=== PATIENT | male | born 1965 | race Caucasian/White ===

== ENCOUNTER 2018-01-11 10:25 | Emergency (ER) | payer OTHER ==
[~2018-01-11] VITALS: Ht 180.3 cm; Wt 133.8 kg
[~2018-01-11 10:25] MED LIST: ADULT LOW DOSE81 MG PO; ALLOPURINOL 30300 M2 PO; ALLOPURINOL PO; AMARYL2 MG PO; ASPIRIN EC81 M1; ATENOLOL 100MG100 M2 PO; AUGMENTIN 875875 MG PO; CIPRO500 MG PO; ENOXAPARIN40 MG/0.1; FLAGYL500 MG PO; GEMFIBROZIL 60600 MG PO; GLUCOPHAGE1000 MG PO; HYDROCODON-ACE1 EA12; HYDROCODONE-AP1 EAC6 PO; LEVAQUIN 750 M750 MG PO; LISINOPRIL40 MG PO; MEDROL4 MG PO; METFORMIN HCL500 MG PO; NORCO 5-325 TA1 EAC1 PO; ONDANSETRON HCL4 M2 PO; PREDNISONE 10 M10 M1 PO; PREDNISONE 10 M10 MG PO; VITAMIN C PO; VITAMINC500 PO; ZOFRAN4 MG
[2018-01-11 11:08] LABS: ABSOLUTE BASOPHILS 0.1 thou/uL (0.0-0.2); ABSOLUTE EOSINOPHILS 0.2 thou/uL (0.0-0.7); ABSOLUTE LYMPHOCYTES 1.4 thou/uL (0.8-5.3); ABSOLUTE MONOCYTES 0.3 thou/uL (0.0-1.2); ABSOLUTE NEUTROPHILS 5.8 thou/uL (1.6-8.1); HEMATOCRIT 36.7 % (42.0-52.0); HEMOGLOBIN 12.2 gm/dL (14.0-18.0); LYMPHOCYTES 17.3 %; MCH 30.6 pg (26.0-34.0); MCHC 33.2 g/dL (28.0-37.0); MONOCYTES 4.4 %; MPV 7.5 fl. (7.2-11.1); NUCLEATED RBCS 0 /100WBC; PLATELET COUNT* 252 thou/uL (150-400); POLYS 74.3 %; RBC 3.99 mil/uL (4.50-6.00); RDW-CV 14.9 % (10.5-14.5); WBC 7.8 thou/uL (4.0-11.0)
[2018-01-11 11:16] LABS: ANION GAP 9 mmol/L (7-16); BUN 15 mg/dL (7-18); CALCIUM 9.3 mg/dL (8.5-10.1); CHLORIDE 100 mmol/L (98-107); CO2 25 mmol/L (21-32); CREATININE 0.9 mg/dL (0.6-1.3); GLUCOSE 193 mg/dL (70-99); POTASSIUM 3.9 mmol/L (3.5-5.1); SODIUM 134 mmol/L (136-145)
[2018-01-11 11:32] LABS: ALBUMIN 3.5 g/dL (3.4-5.0); ALKALINE PHOSPHATASE 63 U/L (46-116); AMYLASE 68 U/L (25-115); CK-MB MASS 0.6 ng/mL (<0.5-3.6); LIPASE 306 U/L (73-393); SGOT 20 U/L (15-37); SGPT 19 U/L (30-65); TOTAL BILIRUBIN 0.5 mg/dL (<0.1-1.0); TOTAL PROTEIN 8.3 g/dL (6.4-8.2); TROPONIN-I LEVEL <0.06 ng/mL (<0.06)
[2018-01-11 13:10] LABS: URINE BILIRUBIN NEGATIVE (Negative); URINE BLOOD NEGATIVE (Negative); URINE CLARITY CLEAR; URINE COLOR YELLOW; URINE GLUCOSE-RANDOM NEGATIVE (Negative); URINE KETONES NEGATIVE (Negative); URINE LEUKOCYTES-REFLEX NEGATIVE (Negative); URINE NITRITE-REFLEX NEGATIVE (Negative); URINE PROTEIN NEGATIVE (Negative); URINE UROBILINOGEN 0.2 E.U./dl (0.2-1.0)
[2018-01-11] MEDS ORDERED: ONDANSETRON HCL4 M2 PO (13:22)
[2018-01-11 13:48] VITALS: BP 101/64
--- NOTE | 2018-01-11 19:36 | EKG ---
[place] [address] ELECTROCARDIOGRAM REPORT Name: WILLIE VALENCIA Room: [facility]#: [id number] Admission: 01/11/18 Attend Phys: Discharge: 01/11/18 Date of : 69 Report #: [id number] THIS REPORT FOR: //name// [facility] ED Test Date: 2018-01-11 Test Time: 10:42:30 Pat Name: WILLIE VALENCIA Department: Room: Gender: M Evaluation Specialist: JETT : 1965 Requested By: Zully Dc Order Number: [id number] MD: Bharat Hemphill Measurements Intervals [place] Rate: 70 P: 65 AR: 174 QRS: 35 QRSD: 94 T: 48 QT: 385 QTc: 416 Interpretive Statements Sinus rhythm Low voltage, precordial leads Baseline wander in lead(s) V1,V4,V6 Compared to ECG 11/10/2012 08:19:35 Low QRS voltage now present Electronically Signed On 01-11-2018 19:36:13 CDT by Bharat Hemphill [email or web address] <ELECTRONICALLY SIGNED> By: Bharat Hemphill MD, FAC 01/11/18 1936 1042 1042 Bharat Hemphill MD, MERGED WITH [facility] /EPI
== END 2018-01-11 13:49 | disposition home or self-care (01) ==
LOC: M.ERS 10:25
PROVIDERS: Nurse Practitioner Family
DX: T18.198A Other foreign object in esophagus causing other injury, initial encounter (principal); R11.2 Nausea with vomiting, unspecified; E11.9 Type 2 diabetes mellitus without complications; I10 Essential (primary) hypertension; K21.9 Gastro-esophageal reflux disease without esophagitis; E78.00 Pure hypercholesterolemia, unspecified; M10.9 Gout, unspecified; Z91.041 Radiographic dye allergy status; Z88.6 Allergy status to analgesic agent; Z88.8 Allergy status to other drugs, medicaments and biological substances; X58.XXXA Exposure to other specified factors, initial encounter; Y93.89 Activity, other specified; Y92.89 Other specified places as the place of occurrence of the external cause; Y99.8 Other external cause status

== ENCOUNTER 2018-03-01 21:00 | Emergency (ER) | payer OTHER ==
[~2018-03-01] VITALS: Ht 180.3 cm; Wt 136.1 kg
[2018-03-01 21:52] LABS: ABSOLUTE BASOPHILS 0.1 thou/uL (0.0-0.2); ABSOLUTE EOSINOPHILS 0.2 thou/uL (0.0-0.7); ABSOLUTE LYMPHOCYTES 1.6 thou/uL (0.8-5.3); ABSOLUTE MONOCYTES 0.4 thou/uL (0.0-1.2); ABSOLUTE NEUTROPHILS 8.6 thou/uL (1.6-8.1); BASOPHILS 0.8 %; EOSINOPHILS 2.1 %; HEMATOCRIT 37.6 % (42.0-52.0); HEMOGLOBIN 12.6 gm/dL (14.0-18.0); LYMPHOCYTES 14.8 %; MCH 30.8 pg (26.0-34.0); MCHC 33.5 g/dL (28.0-37.0); MPV 7.7 fl. (7.2-11.1); NUCLEATED RBCS 0 /100WBC; PLATELET COUNT* 318 thou/uL (150-400); POLYS 78.3 %; RBC 4.09 mil/uL (4.50-6.00); RDW-CV 15.3 % (10.5-14.5)
[2018-03-01 21:56] LABS: CALCIUM 9.4 mg/dL (8.5-10.1)
[2018-03-01 22:00] LABS: ALBUMIN 3.6 g/dL (3.4-5.0); TOTAL BILIRUBIN 0.4 mg/dL (<0.1-1.0); TOTAL PROTEIN 8.8 g/dL (6.4-8.2)
[2018-03-01] MEDS ORDERED: FLAGYL500 MG PO (22:45)
[2018-03-01] MEDS ORDERED: CIPROFLOXACIN500 M1 PO (22:45)
[2018-03-01] MEDS ORDERED: BENTYL 20 MG TA20 M1 PO (22:45)
[2018-03-01 23:03] VITALS: BP 108/61
== END 2018-03-01 23:03 | disposition home or self-care (01) ==
LOC: M.ERS 21:00
PROVIDERS: Nurse Practitioner Family
DX: K57.92 Diverticulitis of intestine, part unspecified, without perforation or abscess without bleeding (principal); E11.9 Type 2 diabetes mellitus without complications; I10 Essential (primary) hypertension; K21.9 Gastro-esophageal reflux disease without esophagitis; E78.00 Pure hypercholesterolemia, unspecified; M10.9 Gout, unspecified

== ENCOUNTER 2018-11-10 22:29 | Emergency (ER) | payer OTHER ==
[~2018-11-10] VITALS: Ht 180.3 cm; Wt 133.8 kg
[~2018-11-10 22:29] MED LIST changes: +BENTYL 20 MG TA20 M1 PO; +CIPROFLOXACIN500 M1 PO
[2018-11-10] MEDS ORDERED: GEMFIBROZIL 60600 MG PO (22:46)
[2018-11-10 23:06] LABS: ABSOLUTE BASOPHILS 0.1 thou/uL (0.0-0.2); ABSOLUTE EOSINOPHILS 0.2 thou/uL (0.0-0.7); ABSOLUTE LYMPHOCYTES 1.9 thou/uL (0.8-5.3); ABSOLUTE MONOCYTES 0.5 thou/uL (0.0-1.2); ABSOLUTE NEUTROPHILS 9.6 thou/uL (1.6-8.1); BASOPHILS 1.1 %; EOSINOPHILS 1.9 %; HEMATOCRIT 38.6 % (42.0-52.0); LYMPHOCYTES 15.6 %; MCH 30.5 pg (26.0-34.0); MCHC 33.8 g/dL (28.0-37.0); MCV 90.2 fL (80.0-100.0); MONOCYTES 4.4 %; MPV 7.9 fl. (7.2-11.1); NUCLEATED RBCS 0 /100WBC; PLATELET COUNT* 305 thou/uL (150-400); RBC 4.27 mil/uL (4.50-6.00); RDW-CV 14.2 % (10.5-14.5); WBC 12.4 thou/uL (4.0-11.0)
[2018-11-10 23:12] LABS: CREATININE 0.9 mg/dL (0.6-1.3); POTASSIUM 4.3 mmol/L (3.5-5.1)
[2018-11-10 23:17] LABS: ALBUMIN 3.8 g/dL (3.4-5.0); TOTAL BILIRUBIN 0.5 mg/dL (<0.1-1.0)
[2018-11-11] MEDS ORDERED: CIPRO500 MG PO (00:35)
[2018-11-11] MEDS ORDERED: FLAGYL500 M1 PO (00:35)
[2018-11-11 00:43] VITALS: BP 97/63
== END 2018-11-11 00:43 | disposition home or self-care (01) ==
LOC: M.ERS 22:29
PROVIDERS: Nurse Practitioner Family
DX: K57.92 Diverticulitis of intestine, part unspecified, without perforation or abscess without bleeding (principal); E11.9 Type 2 diabetes mellitus without complications; I10 Essential (primary) hypertension; K21.9 Gastro-esophageal reflux disease without esophagitis; E78.00 Pure hypercholesterolemia, unspecified; M10.9 Gout, unspecified; Z88.1 Allergy status to other antibiotic agents; Z88.8 Allergy status to other drugs, medicaments and biological substances

== ENCOUNTER 2021-02-18 23:00 | Inpatient (IN) | payer OTHER ==
[~2021-02-18] VITALS: Ht 177.8 cm; Wt 145.1 kg
[~2021-02-18 23:00] MED LIST changes: +ALLOPURINOL 30300 M1 PO; -ALLOPURINOL 30300 M2 PO; +FLAGYL500 M1 PO
[2021-02-18 23:35] VITALS: BP 111/61
[2021-02-19 01:59] LABS: ABSOLUTE BASOPHILS 0.1 thou/uL (0.0-0.2); ABSOLUTE EOSINOPHILS 0.1 thou/uL (0.0-0.7); ABSOLUTE LYMPHOCYTES 1.1 thou/uL (0.8-5.3); ABSOLUTE MONOCYTES 0.5 thou/uL (0.0-1.2); ABSOLUTE NEUTROPHILS 10.8 thou/uL (1.6-8.1); BASOPHILS 0.8 %; HEMATOCRIT 42.1 % (42.0-52.0); HEMOGLOBIN 13.7 gm/dL (14.0-18.0); MCH 30.6 pg (26.0-34.0); MCHC 32.4 g/dL (28.0-37.0); MCV 94.3 fL (80.0-100.0); MONOCYTES 4.2 %; MPV 7.9 fl. (7.2-11.1); NUCLEATED RBCS 0 /100WBC; PLATELET COUNT* 308 thou/uL (150-400); RBC 4.46 mil/uL (4.50-6.00); RDW-CV 15.2 % (10.5-14.5); WBC 12.7 thou/uL (4.0-11.0)
[2021-02-19 02:10] LABS: CREATININE 1.6 mg/dL (0.6-1.3); POTASSIUM 4.4 mmol/L (3.5-5.1)
[2021-02-19 02:15] LABS: ALBUMIN 3.6 g/dL (3.4-5.0); TOTAL BILIRUBIN 0.7 mg/dL (<0.1-1.0); TOTAL PROTEIN 8.4 g/dL (6.4-8.2)
[2021-02-19 02:16] LABS: URINE BILIRUBIN NEGATIVE (Negative); URINE BLOOD NEGATIVE (Negative); URINE CLARITY CLEAR; URINE COLOR YELLOW; URINE GLUCOSE-RANDOM NEGATIVE (Negative); URINE KETONES NEGATIVE (Negative); URINE LEUKOCYTES-REFLEX NEGATIVE (Negative); URINE NITRITE-REFLEX NEGATIVE (Negative); URINE PROTEIN 1+ (Negative); URINE SPECIFIC GRAVITY 1.025 (1.005-1.030); URINE UROBILINOGEN 0.2 E.U./dl (0.2-1.0)
[2021-02-19 09:36] VITALS: BP 103/55
--- NOTE | 2021-02-19 10:44 | EKG ---
[place] [address] ELECTROCARDIOGRAM REPORT Name: WILLIE VALENCIA Room: [address]R.#: [id number] Admission: 02/19/21 Attend Phys: Rivka Stokes, Discharge: Date of : 69 Date of Service: 02/18/21 2351 Report #: [id number] THIS REPORT FOR: //name// [facility] ED Test Date: 2021-02-18 Test Time: 23:51:41 Pat Name: WILLIE VALENCIA Department: Room: [facility] Gender: M [employer]le [employer] Machine: ROSARIO : 1965 Requested By: Claribel Barrera Order Number: [id number] MD: Bharat Hemphill Measurements Intervals [place] Rate: 80 P: 39 AL: 156 QRS: 27 QRSD: 93 T: 26 QT: 379 QTc: 438 Interpretive Statements Sinus rhythm Baseline wander in precordial leads Compared to ECG 01/11/2018 10:42:30 No significant changes Electronically Signed On 02-19-2021 10:44:10 CDT by Bharat Hemphill [email or web address] <ELECTRONICALLY SIGNED> By: Bharat Hemphill MD, FACC 02/19/21 1044 2351 2351 Bharat Hemphill MD, [facility] /EPI
[2021-02-19 13:36] VITALS: BP 98/54
[2021-02-19 17:36] VITALS: BP 103/50
[2021-02-19 21:36] VITALS: BP 107/57
[2021-02-19 21:47] VITALS: BP 107/57
[2021-02-19 22:00] VITALS: BP 107/62
[2021-02-19] MEDS ORDERED: FISH OIL 1,0001 EAC9 PO (23:26)
[2021-02-20 00:30] VITALS: BP 109/57
[2021-02-20 04:50] LABS: ABSOLUTE EOSINOPHILS 0.3 thou/uL (0.0-0.7); ABSOLUTE LYMPHOCYTES 1.8 thou/uL (0.8-5.3); ABSOLUTE MONOCYTES 0.4 thou/uL (0.0-1.2); ABSOLUTE NEUTROPHILS 7.4 thou/uL (1.6-8.1); BASOPHILS 0.2 %; HEMATOCRIT 37.2 % (42.0-52.0); HEMOGLOBIN 12.2 gm/dL (14.0-18.0); LYMPHOCYTES 17.7 %; MCH 31.7 pg (26.0-34.0); MCHC 32.9 g/dL (28.0-37.0); MCV 96.5 fL (80.0-100.0); MONOCYTES 4.2 %; MPV 8.1 fl. (7.2-11.1); NUCLEATED RBCS 0 /100WBC; PLATELET COUNT* 235 thou/uL (150-400); POLYS 74.9 %; RBC 3.86 mil/uL (4.50-6.00); RDW-CV 15.4 % (10.5-14.5); WBC 9.9 thou/uL (4.0-11.0)
[2021-02-20 05:23] LABS: CREATININE 2.6 mg/dL (0.6-1.3)
[2021-02-20 08:30] VITALS: BP 92/55
--- NOTE | 2021-02-20 09:44 | NUR ---
CM ASSESSMENT: PT A&O, AND NORMALLY INDEPENDENT WITH ADL'S, AND DRIVES. PT RESIDES AT HOME ALONE. PT USES 0 DME. PT HAS 0 HX OF HH OR SNF. REVIEW OF PT'S CHART INFORMS THAT THE PT IS CURRENTLY UNINSURED. PT CONFIRMS THIS AND INFORMS THAT MED ASSIST HAS ASSESSED HIM FOR MEDICAID. NO CM D/C PLANNING NEEDS ANTICIPATED AT THIS TIME. CM WILL REMAIN AVAILABLE TO ASSIST AND FOLLOW NEEDED.
[2021-02-20 14:50] LABS: CALCIUM 7.4 mg/dL (8.5-10.1); CREATININE 2.5 mg/dL (0.6-1.3); POTASSIUM 4.5 mmol/L (3.5-5.1)
[2021-02-20 16:00] VITALS: BP 112/58
[2021-02-20 18:30] VITALS: BP 112/58
== END 2021-02-20 23:16 | disposition home or self-care (01) | DRG 388 ==
LOC: M.ERS 23:00 → M.TBA-ER 02-19 05:36 → M.2W 02-19 22:10
PROVIDERS: Emergency Medicine; Family Medicine; Internal Medicine; ADMIT Internal Medicine; ATTEND Internal Medicine
PROC: 0D9670Z Drainage of Stomach with Drainage Device, Via Natural or Artificial Opening (ICD-10-PCS; principal; 2021-02-19)
DX: K56.609 Unspecified intestinal obstruction, unspecified as to partial versus complete obstruction (principal); N17.0 Acute kidney failure with tubular necrosis; E11.9 Type 2 diabetes mellitus without complications; I10 Essential (primary) hypertension; K21.9 Gastro-esophageal reflux disease without esophagitis; E78.00 Pure hypercholesterolemia, unspecified; M10.9 Gout, unspecified; K43.2 Incisional hernia without obstruction or gangrene; E66.01 Morbid (severe) obesity due to excess calories; Z60.2 Problems related to living alone; Z20.822 Contact with and (suspected) exposure to COVID-19; Z68.42 Body mass index [BMI] 45.0-49.9, adult; Z88.8 Allergy status to other drugs, medicaments and biological substances; Z87.891 Personal history of nicotine dependence